=== PATIENT | male | born 1965 | race Caucasian/White ===

== ENCOUNTER 2017-07-21 04:28 | Observation (INO) | payer BC ==
[2017-07-21 07:45] VITALS: BP 119/85; PULSE 69; RESP 18; TEMP 98.1; O2SAT 85
[2017-07-21 08:43] VITALS: PULSE 68
[2017-07-21] MEDS ORDERED: SODIUM CHLORIDE 0.9% FLUSH 10 ML FLUSH IV FLUSH SCH (09:00)
[2017-07-21] MEDS ORDERED: ONDANSETRON HCL 4 MG/2 ML VIAL IV PUSH PRN (09:00)
[2017-07-21] MEDS ORDERED: NITROGLYCERIN 0.4 MG SL 25 TABS/BTL SL PRN (09:00)
[2017-07-21] MEDS ORDERED: ACETAMINOPHEN 500 MG CPLT PO PRN (09:00)
[2017-07-21] MEDS ORDERED: SODIUM CHLORIDE 0.9% FLUSH 10 ML FLUSH IV FLUSH PRN (09:00)
[2017-07-21] MEDS ORDERED: ASPIRIN 325 MG TAB PO SCH (09:00)
--- NOTE | 2017-07-21 09:18 | HHI.HP ---
HPI Service Chest pain center Primary Care Physician Dr. Patrick Chief Complaint Chest pressure History of Present Illness 52-year-old gentleman noted the onset of chest discomfort beginning in June about 5 weeks ago. Initially these episodes were about once a week but have been increasing in frequency and severity. Last episode woke him in the middle of the night and precipitated his coming to the [place] ED. these episodes of chest pain are described as mid chest pressure lasting 2-3 minutes with 7 out of 10 severity. They are associated with shortness of breath and at times radiated to the left arm. They can occur at rest but are often precipitated by exertion. He is a non-smoker, has a negative family history, and no particular risk factors. Review of Systems HEENT: COMPLAINS OF: Lightheadedness Cardiovascular: COMPLAINS OF: See HPI, Chest pain Neurologic: COMPLAINS OF: Tingling or numbness Patient complains of headaches dizziness (lightheadedness). Had an episode of slurred speech in June of brief duration Complaints of heartburn Frequent cramping of his left leg in the morning Episodes of numbness in the left arm Past Family Social History Allergies: Coded Allergies: No Known Drug Allergies (Verified Allergy, Unknown, 07/21/17) Past Medical History No significant history Past Surgical History Left inguinal hernia repair about 7 years ago 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 HEAD: Atraumatic. Normocephalic. EYES: Pupils equal and round. No scleral icterus. No injection or drainage. ENT: No nasal bleeding or discharge. Mucous membranes pink and moist. NECK: Trachea midline. No JVD. No bruit CARDIOVASCULAR: Regular rate and rhythm. No gallops rubs or murmurs RESPIRATORY: No accessory muscle use. Clear to auscultation. Breath sounds equal bilaterally. GASTROINTESTINAL: Abdomen soft, non-tender, nondistended. Hepatic and splenic margins not palpable. Well-healed left inguinal hernia scar MUSCULOSKELETAL: Extremities without clubbing, cyanosis, or edema. No obvious deformities. NEUROLOGICAL: Awake and alert. No obvious cranial nerve deficits. Motor grossly within normal limits. Five out of 5 muscle strength in the arms and legs. Normal speech. PSYCHIATRIC: Appropriate mood and affect; insight and judgment normal. Laboratory Troponin and basic lab negative Imaging Chest x-ray unremarkable Course Transferred from [place] with negative labs and EKG to be evaluated at the chest pain center [facility] VTE Risk Assessment [facility] VTE Risk Assessment: No/Low Risk (score <= 1) Caprini Risk Assessment Model Point Value = 1 Point Value = 2 Point Value = 3 Point Value = 5 Age 41-60 Minor surgery BMI > 25 kg/m2 Swollen legs Varicose veins or History of unexplained or recurrent spontaneous Oral contraceptives or hormone replacement Sepsis (< 1 month) Serious lung disease, including pneumonia (< 1 month) Abnormal pulmonary function Acute myocardial infarction Congestive heart failure (< 1 month) History of inflammatory bowel disease Medical patient at bed rest Age 61-74 Arthroscopic surgery Major open surgery (> 45 min) Laparoscopic surgery (> 45 min) Malignancy Confined to bed (> 72 hours) Immobilizing plaster cast Central venous access Age >= 75 History of VTE Family history of VTE Factor V Leiden Prothrombin [id number] Lupus anticoagulant Anticardiolipin antibodies Elevated serum homocysteine Heparin-induced thrombocytopenia Other congenital or acquired thrombophilia Stroke (< 1 month) Elective arthroplasty Hip, pelvis, or leg fracture Acute spinal cord injury (< 1 month) Prophylaxis Regimen Total Risk Factor Score Risk Level Prophylaxis Regimen 0-1 Low Early ambulation 2 Moderate Order ONE of the following: *Sequential Compression Device (SCD) *Heparin 5000 units SQ BID 3-4 Higher Order ONE of the following medications: *Heparin 5000 units SQ TID *Enoxaparin/Lovenox 40 mg SQ daily (WT < 150 kg, CrCl > 30 mL/min) *Enoxaparin/Lovenox 30 mg SQ daily (WT < 150 kg, CrCl > 10-29 mL/min) *Enoxaparin/Lovenox 30 mg SQ BID (WT < 150 kg, CrCl > 30 mL/min) AND/OR *Sequential Compression Device (SCD) 5 or more Highest Order ONE of the following medications: *Heparin 5000 units SQ TID (Preferred with Epidurals) *Enoxaparin/Lovenox 40 mg SQ daily (WT < 150 kg, CrCl > 30 mL/min) *Enoxaparin/Lovenox 30 mg SQ daily (WT < 150 kg, CrCl > 10-29 mL/min) *Enoxaparin/Lovenox 30 mg SQ BID (WT < 150 kg, CrCl > 30 mL/min) AND *Sequential Compression Device (SCD) Assessment and Plan Problem List: (1) Chest pain ICD Codes: R07.9 - Chest pain, unspecified Status: Acute Plan: Rule out ND protocol then ETT If negative discharge to primary care physician If positive will admit for evaluation (2) Head ache ICD Codes: R51 - Headache Plan: Instructed regarding need to follow-up with primary care physician (3) Slurred speech ICD Codes: R47.81 - Slurred speech Plan: Instructed regarding need to follow with primary care physician Mamadou Jones MD Jul 21, 2017 09:18
[2017-07-21] MEDS ORDERED: IOHEXOL 350 MG/ML 10 ML VIAL (for RAD DIAG) IVCONTRAST ONE (11:32)
--- NOTE | 2017-07-21 11:45 | RADRPT ---
EXAM DATE/TIME: 07/21/2017 11:24 [place] COMPARISON: CHEST SINGLE AP, July 21, 2017, 3:15. INDICATIONS : Chest pain and shortness of breath. IV CONTRAST: 65 cc Omnipaque 350 (iohexol) IV RADIATION DOSE: 11.08 CTDIvol (mGy) MEDICAL HISTORY : None SURGICAL HISTORY : None. ENCOUNTER: Initial ACUITY: 1 day PAIN SCALE: 6/10 LOCATION: chest TECHNIQUE: Volumetric scanning of the chest was performed using a pulmonary embolism protocol MIP images were re constructed. Using automated exposure control and adjustment of the mA and/or kV according to patien t size, radiation dose was kept as low as reasonably achievable to obtain optimal diagnostic quality images. DICOM format image data is available electronically for review and comparison. Follow-up recommendations for detected pulmonary nodules are based at a minimum on nodule size and pa tient risk factors according to Fleischner Society Guidelines. FINDINGS: PULMONARY ARTERIES: No filling defects are seen in the pulmonary arteries through the segmental level. LUNGS: There is no consolidation or pneumothorax . No concerning pulmonary nodule is visualized. PLEURAE: There is no pleural thickening or pleural effusion. MEDIASTINUM: There is good visualization of the great vessels of the middle mediastinum. No evidence of mediastin al or hilar adenopathy/mass. MUSCULOSKELETAL: Within normal limits for patient age. MISCELLANEOUS: The visualized upper abdominal organs demonstrate no acute abnormality. CONCLUSION: Normal examination. Malina Velez MD on July 21, 2017 at 11:42 Board Certified Radiologist. This report was verified electronically.
--- NOTE | 2017-07-21 12:05 | HHI.DCPOC ---
Discharge Care Plan Diagnosis: (1) Atypical chest pain Goals to Promote Your Health * To prevent worsening of your condition and complications * To maintain your health at the optimal level Directions to Meet Your Goals Take your medications as prescribed Follow your dietary instruction Follow activity as directed Keep your appointments as scheduled Take your immunizations and boosters as scheduled If your symptoms worsen call your PCP, if no PCP go to Urgent Care Center or Emergency Room Smoking is Dangerous to Your Health. Avoid second hand smoke Call the 24-hour hour crisis hotline for domestic abuse at Nadiya Dickey Jul 21, 2017 12:05
[2017-07-21 12:25] VITALS: BP 117/70; PULSE 69; RESP 18; TEMP 97.4; O2SAT 95
== END 2017-07-21 13:41 | disposition home or self-care (01) ==
LOC: NEDDLT 04:28 → NEPHCDU 07:24
PROVIDERS: ADMIT Internal Medicine Interventional Cardiology; ATTEND Internal Medicine Interventional Cardiology
DX: R07.89 Other chest pain (principal); R06.02 Shortness of breath; R51 Headache; R47.81 Slurred speech
CPT/HCPCS: 71045; 71275; 72125; 80053; 82550; 84484; 85025; 85379; 93005; 93017; 99285; G0378; Q9967